=== PATIENT | female | born 1990 | race Caucasian/White ===

== ENCOUNTER 2021-11-21 22:11 | Emergency (ER) | payer MEDICAID, SELFPAY ==
[2021-11-21 22:18] VITALS: BP 116/70; PULSE 58; O2SAT 99
[2021-11-21 23:14] VITALS: BP 111/73; PULSE 57; RESP 12; TEMP 36.9; O2SAT 100; BMI 22.7
--- NOTE | 2021-11-22 00:40 | ED.SKABFB ---
HPI - Skin/Abscess/Foreign Bdy General Chief complaint: Skin/Abscess/Foreign Body Stated complaint: abcess Time Seen by Provider: 11/22/21 00:37 Source: patient Mode of arrival: ambulatory Limitations: no limitations History of Present Illness HPI narrative: 31 yo female presents with redness/swelling and boil to her forehead since 11/11. No fevers, chills, Related Data Previous Rx's Medication Instructions Recorded doxycycline monohydrate 100 mg 100 mg PO BID 14 days #28 caps 11/22/21 capsule Allergies Allergy/AdvReac Type Severity Reaction Status Date / Time No Known Allergies Allergy Verified 11/21/21 23:18 Review of Systems Review of Systems: Yes all other systems are reviewed and are negative Constitutional: Constitutional: Reports no additional constitutional complaints, Denies body ache(s), Denies chills, Denies fever(s), Denies headache(s) and Denies weakness Eyes: Eyes: Reports no additional eye complaints and Denies change in vision ENT: Reports system reviewed and no additional complaints, except as documented, Denies dizziness, Denies headache(s), Denies nasal congestion, Denies nasal discharge and Denies neck pain Cardiovascular: Cardiovascular: Reports no additional cardiovascular complaints, Denies chest pain, Denies leg edema and Denies dyspnea Respiratory: Respiratory: Reports no additional respiratory complaints, Denies cough and Denies dyspnea Gastrointestinal: Gastrointestinal: Reports no additional gastrointestinal complaints, Denies abdominal pain, Denies diarrhea, Denies nausea and Denies vomiting Genitourinary: Genitourinary: Reports no additional female genitourinary complaints and Denies urinary incontinence Musculoskeletal: Musculoskeletal: Reports no additional musculoskeletal complaints, Denies back pain, Denies arthralgias, Denies joint swelling, Denies neck pain, Denies numbness and Denies tingling Integumentary/Breasts: Skin/Breast: Reports system reviewed and no additional complaints, except as docu, Reports furuncle, Reports swelling, Reports erythema and Denies rash Neurologic: Reports system reviewed and no additional complaints, except as documented, Denies Abnormal speech present, Denies dizziness, Denies headache(s), Denies numbness, Denies tingling and Denies weakness [facility] Past Medical History Attestation statement: The following information was validated with the patient. Source: old records reviewed and nursing notes reviewed Physical Exam Vital Signs: Vital Signs: Last Vital Signs Temp 98.4 F 11/21/21 23:14 Pulse 57 11/21/21 23:14 Resp 12 11/21/21 23:14 BP 111/73 11/21/21 23:14 Pulse Ox 100 11/21/21 23:14 O2 Del Method 11/21/21 23:14 BMI result Body Mass Index 22.7 Const: General: cooperative, healthy appearing, comfortable and no acute distress Orientation/consciousness: patient oriented x3 Limitations: no limitations HEENT: Other: Patient has mild bilateral periorbital swelling-no bruising. EOM is normal Head: Yes normal to inspection Head images: 1. medium sized abscess with pointing, drainage, tenderness, swelling and surrounding erythema Ears: hearing grossly normal bilaterally General nose exam: Normal external nose present Face and sinus: Yes normal facial exam Mouth: Normal oral and palatal mucosa present Throat: Yes posterior oropharynx normal Eyes: General: appearance normal, both eyes and all related structures Pupils: Equal, round and reactive pupils present EOM: EOMs intact bilaterally Neck: Neck: Yes normal visual inspection Chest: Chest palpation & inspection: normal inspection of the chest Resp: Effort & Inspection: normal respiratory effort Auscultation: clear to auscultation bilaterally Cardio: Rate: regular rate Rhythm: regular rhythm Peripheral pulses: Peripheral pulses 2+ throughout GI: Inspection: Yes normal to inspection Palpation (GI): Soft to palpation and nontender Auscultation: normal bowel sounds Back/Spine/Pelvis: Thoracic/Lumbar Spine: thoracic and lumbar spine normal to inspection Skin: General skin exam: no rashes or lesions noted Neuro: General: patient oriented x3, no focal motor deficits and normal sensation to monofilament Cranial nerves: Yes Equal, round and reactive pupils present Cognition (Neuro): normal cognition Speech: No Abnormal speech present Gait exam (Neuro): Normal gait present Motor exam (neuro): 5/5 motor strength present throughout Extrem: General: Yes normal to inspection Course Course Course Narrative: During procedure patient was noted to have an infected cyst. I drained the cyst but the cyst remains in place. Patient unable to tolerate entire procedure d/t pain/anxiety and therefore the procedure was stoppped. A dressing was applied and she was given a dose of oral antibiotics. She is staying with her boyfriend with friends here and they are visiting from [place]. They are not sure when they will return home. Given number for general surgery if they anticipate being here indefinitely for excision of cyst. Reviewed worrisome signs/symptoms with patient and when to seek additional care. Comfortable with discharge home. MDM - Skin/Abscess/Foreign Bdy MDM Narrative Medical decision making narrative: 31 yo female here with abscess to right forehead. Slight bilateral periorbital edema. Patient has EOM intact. She states I have been crying alot. when asked why she did not want to provide details. Less likely orbital cellulitis with normal EOM, no visual complaints, See procedure note for I&D Differential Diagnosis Differential diagnosis: Likely abscess of skin or subcutaneous tissue Medical Records Attestation: I reviewed the patient's medical records. Lab Data Attestation: I reviewed the patient's lab results. Procedures Abscess I/D Site: face Local Anesthetic: lidocaine 1% Amount of anesthesia used (mL): 5 Technique: incised with blade Amount of fluid expressed (mL): 5 Sent for culture/gram staining?: No Irrigation: No Packing used?: none Discharge Plan Discharge Clinical Impression: Abscess of skin or subcutaneous tissue Patient Disposition: Home, Self-Care Additional Instructions: Warm compresses to the affected area Prescriptions: New doxycycline monohydrate 100 mg capsule 100 mg PO BID 14 Days Qty: 28 0RF Referrals: Isac Sorensen MD [Physician] - 2 weeks
[2021-11-22 01:15] VITALS: BP 109/59; PULSE 52; RESP 16; TEMP 37.1; O2SAT 98
[2021-11-22] MEDS: Lidocaine HCl 1 % MPF 5 ML VIAL SUBCUT (01:21)
== END 2021-11-22 01:37 | disposition home or self-care (01) ==
LOC: HO.ED 11-22 01:34
PROVIDERS: Emergency Provider Internal Medicine
DX: L02.01 Cutaneous abscess of face (principal)
CPT/HCPCS: 10060; 99283; 99284

== ENCOUNTER → 2021-12-12 10:41 | Outpatient (BNVA) | payer MEDICAID, SELFPAY | PROVIDERS: Visit Provider Surgery | DX: L02.01 Cutaneous abscess of face (principal) | CPT/HCPCS: 10060; 99202 ==

== ENCOUNTER 2024-03-31 13:29 | Emergency (ER) | payer OTHER, SELFPAY ==
--- NOTE | ~2024-03-31 | XR_ITS ---
EXAMINATION: XR FINGER, RIGHT CLINICAL INFORMATION: second digit laceration COMPARISON: None available. TECHNIQUE: PA view of the right oblique and lateral views second digit. FINDINGS: No acute cortical disruption or malalignment. No lytic or blastic lesions. No metallic or radiopaque foreign body. XR/XR finger RT min 2V IMPRESSION: No acute fracture or dislocation. No gross radiopaque foreign body. Electronically signed by: Fredrick Guo MD 03/31/2024 02:41 PM EST
[2024-03-31 13:36] VITALS: BP 140/57; PULSE 72; RESP 19; TEMP 36.6; O2SAT 99; BMI 25.8
--- NOTE | 2024-03-31 13:36 | ED_ITS ---
HPI - General Adult General Chief complaint: Wound/Laceration Stated complaint: cut finger Time Seen by Provider: 03/31/24 13:48 Source: patient and RN notes reviewed Mode of arrival: ambulatory Limitations: no limitations History of Present Illness ED Provider: Sasha Long PA-C HPI narrative: This is a 33-year-old female who presents emergency department with complaints of laceration to right 2nd finger which occurred at work today. 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 She denies any numbness or tingling to the tip of her finger. She is right-hand dominant. She is unsure when her last tetanus shot was. No other complaints or concerns at this time. MD complaint: Laceration right 2nd digit Onset (ago): day(s) Relieving factors: none Exacerbating factors: none Associated symptoms: denies other symptoms Treatments prior to arrival: none Related Data Previous Rx's ?Medication ?Instructions ?Recorded doxycycline hyclate 100 mg tablet 100 mg PO DAILY #10 tabs 12/12/21 cephalexin 250 mg capsule 250 mg PO QID 5 days #20 caps 03/31/24 Allergies Allergy/AdvReac Type Severity Reaction Status Date / Time No Known Allergies Allergy Verified 03/31/24 13:37 Review of Systems Review of Systems: Yes all other systems are reviewed and are negative Constitutional: Constitutional: Reports as per [facility] Past Medical History Attestation statement: The following information was validated with the patient. Medical History Abscess of forehead Social History Social History Advance Directives: No Advance Directives Information Provided: Yes Do you have a plan to hurt others: No Plan Physical Exam ED Vital Signs: Vital Signs - 24 hr 03/31/24 13:36 03/31/24 15:25 Temperature 98 F 97.8 F Pulse Rate 72 68 Respiratory Rate 19 18 Blood Pressure 140/57 H 134/87 Pulse Oximetry 99 97 Oxygen Delivery Method Room Air Room Air BMI result Body Mass Index 25.8 Const General: cooperative, comfortable and no acute distress Orientation/consciousness: patient oriented x3 Limitations: no limitations HENMT Head: Yes normal to inspection, Yes normocephalic and Yes atraumatic Ears: hearing grossly normal bilaterally General nose exam: Normal external nose present Face and sinus: Yes normal facial exam Mouth: Normal oral and palatal mucosa present, oropharynx normal and moist mucous membranes Throat: Yes posterior oropharynx normal Eyes General: appearance normal, both eyes and all related structures Eyelids: Yes eyelids normal Conjunctivae: conjunctivae normal Sclerae: sclerae normal Pupils: Equal, round and reactive pupils present EOM: EOMs intact bilaterally Neck Neck: Yes normal visual inspection, Yes full ROM and Yes no lymphadenopathy Lymphatic: no lymphadenopathy noted Chest Chest palpation & inspection: normal inspection of the chest Resp Effort & Inspection: normal respiratory effort and able to speak in complete sentences Auscultation: clear to auscultation bilaterally, no crackles, no rales, no rhonchi and no wheezes Cardio Rate: regular rate Rhythm: regular rhythm Heart sounds: S1 normal heart sound present and S2 normal heart sound present GI Inspection: Yes normal to inspection Skin Other: Right 2nd digit, lateral aspect, 1 cm flap laceration noted to the lateral nail bed, slight breakage noted to the lateral nail. Full ROM of the digit without difficulty. Nontender. General skin exam: no rashes or lesions noted Trauma: no lacerations or abrasions Wounds: no wounds Neuro General: patient oriented x3 and moves all extremities Cranial nerves: Yes Equal, round and reactive pupils present Extrem General: Yes normal to inspection Right upper extremity: normal to inspection Left upper extremity: normal to inspection Right lower extremity: normal to inspection Left lower extremity: normal to inspection Course Course Course Narrative: This is a rapid medical exam performed by Jazmyn Rolon NP: Additional HPI, ROS, PE not included below will be deferred to primary provider. Patient is a 33-year-old right hand dominant female presenting with laceration to right 2nd finger. Cut accidentally on a slicer at work. Unknown last Tdap. Small flap to ulnar side of nail fold, does not appear to be nail involvement. Plan: will need repaid, Tdap ordered Medications Administered Discontinued Medications Generic Name Dose Route Start Last Admin Trade Name Freq PRN Reason Stop Dose Admin Acetaminophen 975 mg 03/31/24 13:50 03/31/24 13:56 Acetaminophen 325 Mg Tablet PO 03/31/24 13:51 975 mg ONCE ONE Administration Diphtheria/Tetanus/Acell Pertussis 0.5 ml 03/31/24 13:37 03/31/24 13:56 Diphth,Pertus(Acell),Tet Adult 0.5 Ml Syringe IM 03/31/24 13:38 0.5 ml .ONCE ONE Administration Lidocaine HCl 5 ml 03/31/24 14:27 03/31/24 14:32 Lidocaine Hcl 1 % Mpf 5 Ml Vial SUBCUT 03/31/24 14:28 5 ml ONCE ONE Administration Procedures Laceration Laceration 1: Site: other (Finger) Side (If applicable): right Size (cm): 1.5 Description: flap Depth: simple, single layer Local Anesthetic: lidocaine 1% Amount of anesthesia used (mL): 4 Pre-repair: wound explored, irrigated extensively and deep structures intact Skin layer closed with: nylon Size (cm): 5-0 Number of sutures: 3 Nerve Block Nerve Block 1: Time out performed: Yes Local Anesthetic: lidocaine 1% Amount of anesthesia used (mL): 4 Side: right Nerve Blocks: other (Finger) Procedure Successful: Yes Patient Tolerated Procedure: well Complications: none Medical Decision Making Medical Decision Making MDM Narrative: This is a 33-year-old female who presents emergency department for laceration. On arrival, vital signs within normal limits, she is speaking full sentences under no acute distress. Fall ROM of the digit without difficulty. X-ray did not reveal any bony abnormalities. She does have a 1 cm laceration noted to her lateral finger, requiring suture repair. Procedure note for details. Slight involvement of the lateral border of the nail, does not appear to be into the nail bed. This was adhered using Dermabond. Patient tolerated procedure well without any complications or concerns. Patient discharged on Keflex for prophylactic treatment. Given strict return precautions. Given wound care instructions. Patient stable for discharge. Differential Diagnosis Differential Diagnoses: The differential diagnosis associated with the presentation includes Laceration, contusion, abrasion, fracture Radiology Impression Discussion of test interpretation with radiology: I have reviewed the radiologist's reading. Radiologist Impression: XR/XR finger RT min 2V IMPRESSION: No acute fracture or dislocation. No gross radiopaque foreign body. Electronically signed by: Fredrick Guo MD 03/31/2024 02:41 PM [facility] Dictated By: Fredrick Wagner MD Discharge Plan Discharge Clinical Impression: Laceration Patient Disposition: Home, Self-Care Instructions: Care For Your Stitches (ED), Laceration (ED) Additional Instructions: You were seen in the emergency department after lacerating your right 2nd finger. We applied 3 sutures to your wound. Please have sutures removed in 10-14 days. You may return here, or follow-up with your primary care physician. Do not submerge wound. Do not get wound wet until tomorrow. You may wash your hands with warm soapy water tomorrow, do not pick at wound. You can pat dry if it does become wet. You may alternate between ibuprofen and Tylenol as needed for pain and symptoms. Take prescribed antibiotic as directed, finish the entire course. This will prevent the area from infection. If any new or worsening symptoms occur including but not limited to the above symptoms, please seek emergent care. Prescriptions: New cephalexin 250 mg capsule 250 mg PO QID 5 Days Qty: 20 0RF No Action doxycycline hyclate 100 mg tablet 100 mg PO DAILY Qty: 10 0RF Stand Alone Forms: Work/School Release Print Language: Syriac
[2024-03-31] MEDS: Acetaminophen 325 MG TABLET 975 MG PO (13:56)
[2024-03-31] MEDS: Diphth,Pertus(ACell),Tet Adult 0.5 ML SYRINGE IM (13:56)
[2024-03-31] MEDS: Lidocaine HCl 1 % MPF 5 ML VIAL SUBCUT (14:32)
--- NOTE | 2024-03-31 15:20 | PC.NURSE ---
sutures applied to right index finger by provider. pt tolerated well.
[2024-03-31 15:25] VITALS: BP 134/87; PULSE 68; RESP 18; TEMP 36.6; O2SAT 97
[2024-03-31 15:39] VITALS: BP 134/87; PULSE 68; RESP 18; TEMP 36.6; O2SAT 97
== END 2024-03-31 15:40 | disposition home or self-care (01) ==
PROVIDERS: Emergency Provider Emergency Medicine
DX: S61.210A Laceration without foreign body of right index finger without damage to nail, initial encounter (principal); W26.0XXA Contact with knife, initial encounter; Y93.G1 Activity, food preparation and clean up; Y92.511 Restaurant or cafe as the place of occurrence of the external cause; Y99.0 Civilian activity done for income or pay; Z23 Encounter for immunization
CPT/HCPCS: 12001; 73140; 90471; 90715; 99283; 99284; J2003

== ENCOUNTER → 2024-03-31 13:52 | Outpatient (BNV) | payer OTHER, SELFPAY | PROVIDERS: Emergency Provider Emergency Medicine; Visit Provider Radiology Diagnostic Radiology | DX: S61.210A Laceration without foreign body of right index finger without damage to nail, initial encounter (principal) | CPT/HCPCS: 73140 ==

== ENCOUNTER 2024-04-10 09:40 | Emergency (ER) | payer MEDICAID, SELFPAY ==
[2024-04-10 09:47] VITALS: BP 126/78; PULSE 98; RESP 18; TEMP 36.6; O2SAT 96; BMI 25.4
--- NOTE | 2024-04-10 09:54 | ED.GENADULT ---
HPI - General Adult General Chief complaint: General Medical Stated complaint: remove stitches Time Seen by Provider: 04/10/24 09:54 Source: patient Mode of arrival: ambulatory Limitations: no limitations History of Present Illness ED Provider: Mei Osorio NP HPI narrative: Patient is a 33-year-old female who presents emergency department for evaluation and suture removal from the right 2nd finger. Was seen 03/31/2024 after an accidental laceration while at work. She offers no physical complaints at this time. Denies any fevers, chills, pus-like drainage, numbness or tingling to the finger, inability to move the finger. Related Data Previous Rx's ?Medication ?Instructions ?Recorded doxycycline hyclate 100 mg tablet 100 mg PO DAILY #10 tabs 12/12/21 cephalexin 250 mg capsule 250 mg PO QID 5 days #20 caps 03/31/24 Allergies Allergy/AdvReac Type Severity Reaction Status Date / Time No Known Allergies Allergy Verified 04/10/24 09:49 Review of Systems Review of Systems: Yes all other systems are reviewed and are negative PMFSH Past Medical History Attestation statement: The following information was validated with the patient. Source: old records reviewed Medical History Abscess of forehead Physical Exam ED Vital Signs: Vital Signs - 24 hr 04/10/24 09:47 Temperature 97.9 F Pulse Rate 98 Respiratory Rate 18 Blood Pressure 126/78 Pulse Oximetry 96 Oxygen Delivery Method Room Air BMI result Body Mass Index 25.4 Appearance: Alert.?Oriented to person, place and time. No acute distress.?Normal affect. CVS: Heart sounds normal. Normal heart rate and rhythm.? Pulses normal.?? Respiratory: No respiratory distress.? Lung sounds clear to auscultation bilaterally?? Abdomen: Soft and non-tender. Normoactive bowel sounds. Skin: Skin warm and dry.? Normal skin color.? Right 2nd digit lateral aspect with healed 1 cm laceration, 3 sutures intact without redness, swelling, purulence. Full range of motion to digit Neuro: Moves all extremities spontaneously. Sensation intact bilaterally. Ambulates with normal steady gait. Medical Decision Making Medical Decision Making [facility] Narrative: Patient is a 33-year-old female who presents emergency department for suture removal from an accidental laceration to the right 2nd digit as per HPI. Digit is free from signs of infection no localized cellulitis, full range of motion, no evidence of septic joint. Three sutures were removed without difficulty. Stable for discharge Differential Diagnosis Differential Diagnoses: The differential diagnosis associated with the presentation includes (See narrative above) External Record Review External record reviewed: Outpatient record Prescription Management I considered prescription management with: Pain Medication (Tylenol/ibuprofen as needed) Discharge Plan Discharge Clinical Impression: Finger laceration Qualifiers: Encounter type: initial encounter Finger: index finger Damage to nail status: without damage Foreign body presence: without foreign body Laterality: right Qualified Code(s): S61.210A - Laceration without foreign body of right index finger without damage to nail, initial encounter Patient Disposition: Home, Self-Care Instructions: Finger Laceration (ED) Additional Instructions: Sutures were removed today without difficulty. Prescriptions: No Action cephalexin 250 mg capsule 250 mg PO QID 5 Days Qty: 20 0RF doxycycline hyclate 100 mg tablet 100 mg PO DAILY Qty: 10 0RF Referrals: Physician,Unknown J [Physician] - Print Language: Syriac
[2024-04-10 10:35] VITALS: BP 126/78; PULSE 98; RESP 18; TEMP 36.6; O2SAT 96
== END 2024-04-10 10:37 | disposition home or self-care (01) ==
PROVIDERS: Emergency Provider Emergency Medicine
DX: Z04.2 Encounter for examination and observation following work accident (principal); Z48.02 Encounter for removal of sutures; S61.210D Laceration without foreign body of right index finger without damage to nail, subsequent encounter; W45.8XXD Other foreign body or object entering through skin, subsequent encounter
CPT/HCPCS: 99282